=== PATIENT | female | born 2000 | race Caucasian/White ===

== ENCOUNTER → 2025-05-30 | Outpatient (CLI) | payer OTHER, SELFPAY ==
[2025-05-30 12:02] LABS: Hematocrit 37.5 % (37-47); Hemoglobin 12.8 g/dL (12.0-15.0); Immature Granulocytes Count 0.030 X10^3/uL (0.0-0.0); Mean Corp Hgb Conc 34.1 g/dL (32-36); Mean Corpuscular Volume 86.8 fL (81-99); Mean Platelet Vol. 10.8 fl (6.2-12.0); NRBC Flagged by Analyzer 0 % (0-5); Platelet Count 386 K/mm3 (150-450); RBC Distribution Width CV 13.3 % (11.6-14.6); RBC Distribution Width SD 41.8 fl (35.1-43.9); Red Blood Count 4.32 M/mm3 (4.2-5.4); White Blood Count 10.4 K/mm3 (4.4-11.0)
[2025-05-30 13:32] LABS: HIV Nonreactive (Nonreactive); Hepatitis B Surface Antigen Nonreactive (Nonreactive); Hepatitis C Antibody Nonreactive (Nonreactive); Syphilis Antibodies Nonreactive (Nonreactive)
[2025-06-01 05:07] LABS: Chlamydia By Nucleic Acid AMP Negative (Negative); Gonococcus By Nucleic Acid AMP Negative (Negative)
== END | disposition home or self-care (01) ==
PROVIDERS: Obstetrics & Gynecology; Visit Provider Student in an Organized Health Care Education/Training Program
DX: Z34.00 Encounter for supervision of normal first pregnancy, unspecified trimester (principal)
CPT/HCPCS: 36415; 85025; 86703; 86762; 86780; 86803; 86850; 86900; 86901; 87086; 87088; 87340; 87491; 87591

== ENCOUNTER → 2025-06-22 | Outpatient (CLI) | payer OTHER, SELFPAY ==
--- OUTSIDE RECORDS SUMMARY | 2025-06-20 03:06 | XMS RPT_ITS ---
Author Name Auto Generated Organization [facility] Care Team Providers Care Sap Crm Developer Name Role Phone CRYSTAL MIX Primary Care Physician Unavail able LLOYD LANTIGUA Unavailable Unavailable SHADI KENADLL Attending Physician Unavailable CRYSTAL MIX Primary Care Physician Unavail able LLOYD LANTIGUA Unavailable Unavailable SHADI KENDALL Attending Physician Unavailable RESULTS PROGRESS NOTE Observed: 06/20/2025 9:30 AM Status: COMPLETED Source: [facility] Ultrasound Consult Note Today we discussed the US findings seen on today's Ultrasound: Abnormal placenta. Overall the patient is doing well without physical complaints. Obstetrical History OB History Para Term AB Living 1 SAB IAB Ectopic Multiple Live Births # Outcome Date GA Lbr Sukhjinder/2nd Weight Sex Type Anes PTL Lv 1 Current Nuchal Translucency/first trimester ultrasound was normal. No significant Surgical history Medical history Social history Medication prescriptions Family History Rehab Care Assistant History Review of Systems - negative unless otherwise specified above Physical Examination: General appearance - alert, well appearing, and in no distress Mental status - alert, oriented to person, place, and time Chest - No difficulty with breathing Heart - Normal Rate Abdomen - Non tender during US exam Pelvic - Deferred Extremities - no edema noted Please see US report for further detail Detailed first trimester ultrasound performed based on increased malformation risk. 1. Tucker intrauterine with cardiac activity present at 12w 4d with an KATHRIN of 12/29/2025. 2. [place] rump length measurement is consistent with established gestational age. 3. First trimester nuchal translucency appeared normal for this gestational age, 1.5 mm. 4. First trimester anatomy appears normal with expected limitations noted above due to gestational age. 5. Appearance of a subchorionic flores. No Doppler flow over protuberance. Slow grayscale swirling. Recommendations: 1. Today we discussed the above ultrasound findings first reviewed center intrauterine , well can be seen in the first trimester, normal placentation and normal placenta morphology. We then reviewed the ultrasound finding which is suspected be a placental flores. We discussed the likely benign nature of this finding, will follow-up at 16 weeks for reevaluation. NIPT was discussed and recommended, patient will consider. All questions and concerns were addressed. Patient had elevated blood pressure in office. Patient states that she is extremely anxious and her blood pressure is normally within normal limits. DIRECTOR OF PRIMARY CARE provider should evaluate if her blood pressures continue to be elevated which would indicate a diagnosis of chronic hypertension. My final recommendations will be communicated back to the requesting physician by way of shared medical record or fax. Shadi Kendall MD PROGRESS NOTE Observed: 06/20/2025 8:30 AM Status: COMPLETED Source: [facility] Ultrasound Consult Note Today we discussed the US findings seen on today's Ultrasound: Abnormal placenta. Overall the patient is doing well without physical complaints. Obstetrical History OB History Para Term AB Living 1 SAB IAB Ectopic Multiple Live Births # Outcome Date GA Lbr Sukhjinder/2nd Weight Sex Type Anes PTL Lv 1 Current Nuchal Translucency/first trimester ultrasound was normal. No significant Surgical history Medical history Social history Medication prescriptions Family History Rehab Care Assistant History Review of Systems - negative unless otherwise specified above Physical Examination: General appearance - alert, well appearing, and in no distress Mental status - alert, oriented to person, place, and time Chest - No difficulty with breathing Heart - Normal Rate Abdomen - Non tender during US exam Pelvic - Deferred Extremities - no edema noted Please see US report for further detail Detailed first trimester ultrasound performed based on increased malformation risk. 1. Tucker intrauterine with cardiac activity present at 12w 4d with an KATHRIN of 12/29/2025. 2. [place] rump length measurement is consistent with established gestational age. 3. First trimester nuchal translucency appeared normal for this gestational age, 1.5 mm. 4. First trimester anatomy appears normal with expected limitations noted above due to gestational age. 5. Appearance of a subchorionic flores. No Doppler flow over protuberance. Slow grayscale swirling. Recommendations: 1. Today we discussed the above ultrasound findings first reviewed drew intrauterine , well can be seen in the first trimester, normal placentation and normal placenta morphology. We then reviewed the ultrasound finding which is suspected be a placental flores. We discussed the likely benign nature of this finding, will follow-up at 16 weeks for reevaluation. NIPT was discussed and recommended, patient will consider. All questions and concerns were addressed. Patient had elevated blood pressure in office. Patient states that she is extremely anxious and her blood pressure is normally within normal limits. DIRECTOR OF PRIMARY CARE provider should evaluate if her blood pressures continue to be elevated which would indicate a diagnosis of chronic hypertension. My final recommendations will be communicated back to the requesting physician by way of shared medical record or fax. Shadi Kendall MD ALLERGIES DATE TYPE / CODE NAME / CODE REACTION SEVERITY SOURCE Miscellaneous Allergy/[id number](SNOMED CT) NO KNOWN ALLERGIES [facility] ENCOUNTERS ADMIT/DISCHARGE ACCOUNT NUMBER ADMITTING ENCOUNTER CLASS LOCATION SOURCE 06/20/2025/06/20/2025 [id number] Ambulatory Purdy lding:[facility] 06/20/2025/06/20/2025 [id number] Ambulatory Purdy lding:[facility] PAYERS ENCOUNTER GUARANTOR PAYER SUBSCRIBER SOURCE 06/20/2025 CASSANDRA ALYSSAB: [place], [place] [address]Lef: ~[phone]) Primary Insurance:[employer] [facility] Number: [id number] ve Date: CASSANDRA ALYSSAB: [id number] [place] [address] [facility] 06/20/2025 CASSANDRA ALYSSAB: [place], [place] [address]Rjg: ~[phone]) Primary Insurance:[facility] Number: [id number] ve Date: CASSANDRA ALYSSAB: [id number] [address]
[2025-06-22 12:27] LABS: Hematocrit 38.4 % (37-47); Hemoglobin 12.8 g/dL (12.0-15.0); Immature Granulocytes Count 0.030 X10^3/uL (0.0-0.0); Mean Corp Hgb Conc 33.3 g/dL (32-36); Mean Corpuscular Volume 87.7 fL (81-99); Mean Platelet Vol. 10.9 fl (6.2-12.0); NRBC Flagged by Analyzer 0 % (0-5); Platelet Count 369 K/mm3 (150-450); RBC Distribution Width CV 13.4 % (11.6-14.6); RBC Distribution Width SD 42.9 fl (35.1-43.9); Red Blood Count 4.38 M/mm3 (4.2-5.4); White Blood Count 8.6 K/mm3 (4.4-11.0)
[2025-06-22 13:01] LABS: AST(SGOT) 21 U/L (<=31); Alanine Aminotransfer ALT/SGPT 23 U/L (<=34); Albumin, Serum 4.4 g/dL (3.5-5.0); Alkaline Phosphatase 58 U/L (35-104); Anion Gap 13 (7-18); BUN 6 mg/dL (4-19); BUN/Creat Ratio 9.7 RATIO (10-20); Calcium,Total 9.6 mg/dL (7.6-11.0); Carbon Dioxide 22.0 mmol/L (20.0-29.0); Chloride 103 mmol/L (96-106); Globulin 3.0 g/dL (2.2-4.2); Glucose 98 mg/dL (70-99); Potassium 4.2 mmol/L (3.5-5.1)
== END | disposition home or self-care (01) ==
LOC: BWCLAB 09:23
PROVIDERS: Visit Provider Student in an Organized Health Care Education/Training Program
DX: R03.0 Elevated blood-pressure reading, without diagnosis of hypertension (principal)
CPT/HCPCS: 36415; 80053; 85025